=== PATIENT | female | born 1960 | race Caucasian/White ===

== ENCOUNTER 2020-04-23 09:09 | Emergency (ER) | payer BC, SELFPAY ==
[2020-04-23 09:25] VITALS: BP 158/71; PULSE 59; RESP 16; TEMP 36.4; O2SAT 98
--- NOTE | 2020-04-23 09:37 | ED.WOUNDLAC ---
HPI - Wound/Laceration General Chief Complaint: Wound/Laceration Stated Complaint: laceration Time Seen by Provider: 04/23/20 09:30 Source: patient Mode of arrival: ambulatory Limitations: no limitations History of Present Illness HPI narrative: Sherry Mehta is a 60 yo female with a PMH of HTN, high cholesterol, hypothyroid, comes her with a thumb avulsion after using a mandolin last night while preparing dinner. Mom does not totally stop bleeding since then, continues to drain through dressing Related Data Home Medications Medication Instructions Recorded Confirmed Naprosyn 04/23/20 Synthroid 04/23/20 Toprol XL 04/23/20 Tricor 04/23/20 atorvastatin 04/23/20 Allergies Allergy/AdvReac Type Severity Reaction Status Date / Time No Known Allergies Allergy Verified 04/23/20 09:26 Review of Systems Review of Systems: Narrative: CONSTITUTIONAL: Denies fever, chills, sweats. EYES: Denies visual changes, redness, discharge. ENT: Denies rhinorrhea, congestion, sore throat, otalgia. CARDIOVASCULAR: Denies chest pain, palpitations, edema. RESPIRATORY: Denies dyspnea, wheezing, cough GASTROINTESTINAL: Denies abdominal pain, nausea, vomiting, diarrhea. GENITOURINARY: Denies dysuria, hematuria, abnormal discharge SKIN: Denies rash or itching. bleeding Abrasion laceration to distal right thumb NEUROLOGIC: Denies numbness, or focal weakness. PSYCHIATRIC: Denies anxiety or depression. [facility] Family History Family History Other Heart disease Hypertension Social History Social History (Updated 04/23/20 @ 09:39 by Marge Young CNP) Smoking packs per day: 0.5 Smoking cigarettes per day: 10.0 Smoking status: Current every day smoker Alcohol intake: current Comments At time of signature, I agree with nursing past medical, surgical, social and family history. There is no relevant family history pertinent to the presenting complaint. Exam Narrative: Exam Narrative: GENERAL: This is a well-nourished, well-developed patient, in mild distress. HEAD: normocephalic, atraumatic. EYES: PERRL. Sclera clear/white. Vision is grossly intact. EARS: External ears normal, Hearing grossly intact. NOSE: External nose normal without nasal discharge, nares without redness, no rhinorrhea. THROAT: Mucous membranes moist, NECK: Neck supple, non-tender CARDIOVASCULAR: Regular rate and rhythm without murmurs, gallops, or rubs. RESPIRATORY: Clear to auscultation. Breath sounds equal bilaterally. No wheezes, rales, or rhonchi. GASTROINTESTINAL: Abdomen soft SKIN: warm, intact with no suspicious lesions or rash, good texture and turgor. 1 x 2 avulsion laceration to right posterior thumb to lateral part of nail; nail intact NEURO: awake, alert, and oriented to person, place and time. There were no obvious focal neurologic abnormalities. Steady gait EXTREMITIES: Normal range of motion. BACK: Nontender without deformity Course Course Emergency Course: Dressing applied and tetanus given Given instructions to remove the [place] in 5 days by soaking Follow-up with PCP Vital Signs Vital signs: Vital Signs Temperature 97.6 F 04/23/20 09:25 Pulse Rate 59 L 04/23/20 09:25 Respiratory Rate 16 04/23/20 09:25 Blood Pressure 158/71 H 04/23/20 09:25 Pulse Oximetry 98 04/23/20 09:25 Temperature 97.6 F 04/23/20 09:25 Pulse Rate 59 L 04/23/20 09:25 Respiratory Rate 16 04/23/20 09:25 Blood Pressure 158/71 H 04/23/20 09:25 Pulse Oximetry 98 04/23/20 09:25 Procedures Laceration Laceration 1: Date: 04/23/20 Time: 09:41 Site: hand Side (If applicable): right Size (cm): 2 Description: other (Avulsion) Depth: simple, single layer Pre-repair: irrigated ====== Skin Level ====== Skin layer closed with: other (Gelfoam) ====== Subcutaneous Layer ====== ======
[2020-04-23] MEDS: TETANUS,DIPHTHERIA,AC PERTUSSIS ADULT (0.5 ML) BOOSTRIX IM (09:57)
== END 2020-04-23 10:23 | disposition home or self-care (01) ==
PROVIDERS: Emergency Provider Nurse Practitioner; PCP Family Medicine
DX: S61.011A Laceration without foreign body of right thumb without damage to nail, initial encounter (principal); W27.8XXA Contact with other nonpowered hand tool, initial encounter; Z23 Encounter for immunization; F17.200 Nicotine dependence, unspecified, uncomplicated
CPT/HCPCS: 12001; 90471; 90715; 99202; G0463